=== PATIENT | female | born 1950 | race Caucasian/White ===

== ENCOUNTER 2023-03-26 07:53 | Outpatient (CLI) | payer MEDICARE, BC, MEDICAID, SELFPAY | END 2023-03-26 07:54 | disposition home or self-care (01) | PROVIDERS: PCP Family Medicine; Visit Provider Nurse Practitioner Family | DX: L89.320 Pressure ulcer of left buttock, unstageable (principal); Z93.0 Tracheostomy status; Z74.01 Bed confinement status | CPT/HCPCS: 11042; 99204 ==

== ENCOUNTER 2023-04-09 12:30 | Outpatient (CLI) | payer MEDICARE, BC, MEDICAID, SELFPAY | END 2023-04-09 12:31 | disposition home or self-care (01) | LOC: WOUND 12:30 | PROVIDERS: PCP Family Medicine; Visit Provider Nurse Practitioner Family | DX: L89.320 Pressure ulcer of left buttock, unstageable (principal); Z74.01 Bed confinement status; Z93.0 Tracheostomy status | CPT/HCPCS: 11042 ==